=== PATIENT | female | born 1945 | race Hispanic/Latino ===

== ENCOUNTER 2023-04-22 07:29 | Day surgery (SDC) | payer MEDICARE ==
[2023-04-21 10:05] VITALS: BMI 27.9
[2023-04-22 08:13] LABS: Hematocrit 44.2 % (36.0-47.0); Hemoglobin 14.7 g/dL (12.0-16.0)
[2023-04-22 08:28] LABS: Anion Gap 15 mmol/L (10-20); BUN (Urea Nitrogen) 9 mg/dL (9.8-20.1); Calc. Creatinine Clearance 64 mL/min (70-130); Carbon Dioxide 26 mmol/L (23-31); Chloride 104 mmol/L (98-107); Estimated GFR 84; Glucose 121 mg/dL (83-110); Potassium 3.9 mmol/L (3.5-5.1); Sodium 141 mmol/L (136-145)
[2023-04-22] MEDS ORDERED: Famotidine/PF 20 mg/2ml Vial ONE (08:55)
[2023-04-22] MEDS ORDERED: Bacitracin Zinc Ointment 30 gm TUBE ONE (08:59)
[2023-04-22] MEDS ORDERED: EPINEPHrine 1 MG/ML VIAL ONE (08:59)
[2023-04-22] MEDS ORDERED: Lidocaine 1% (PF) 30 ML VIAL ONE (08:59)
[2023-04-22] MEDS ORDERED: fentaNYL 50 mcg/mL 1 mL Vial ONE (09:06)
[2023-04-22] MEDS ORDERED: PROPOFOL 20 ML ONE (09:06)
[2023-04-22] MEDS ORDERED: Lidocaine 2% PF 5 ML VIAL ONE (09:06)
[2023-04-22] MEDS ORDERED: Dexamethasone 20 MG/5 ML VIAL ONE (09:37)
[2023-04-22] MEDS ORDERED: PHENYLEPHRINE-NS 100 MCG/ML 10 ML SYRINGE ONE (09:37)
[2023-04-22] MEDS ORDERED: Ketorolac Tromethamine 30 MG (1 mL) VIAL ONE (09:42)
[2023-04-22] MEDS ORDERED: Ondansetron PF 4 MG/2 ML Vial ONE (09:42)
[2023-04-22] MEDS ORDERED: ePHEDrine Sulfate 50 MG/10 ML VIAL ONE (09:56)
[2023-04-22] MEDS ORDERED: HYDROcodone/Acetaminophen 5/325 mg Tablet ONE (12:12)
== END 2023-04-22 13:05 | disposition home or self-care (01) ==
LOC: SDC 07:29
PROVIDERS: ATTEND Otolaryngology Plastic Surgery within the Head & Neck
PROC: 0GTG0ZZ Resection of Left Thyroid Gland Lobe, Open Approach (ICD-10-PCS; principal; 2023-04-22)
DX: E04.2 Nontoxic multinodular goiter (principal); Z79.899 Other long term (current) drug therapy; Z98.890 Other specified postprocedural states
CPT/HCPCS: 60220; 80048; 85014; 85018; 93005; C1889; J0171; J3010; 88307; 88311; 93010; J1100; J1885; J2001; J2405; J2704; S0028